=== PATIENT | female | born 1975 | race African-American/Black ===

== ENCOUNTER 2023-05-30 23:16 | Emergency (ER) | payer SELFPAY ==
[~2023-05-30] VITALS: Ht 172.7 cm; Wt 75.0 kg
[2023-05-30 23:20] VITALS: BP 160/93; PULSE 65; RESP 20; O2SAT 100
[2023-05-31 01:39] VITALS: TEMP 98.7
== END 2023-05-31 01:41 | disposition home or self-care (01) ==
LOC: ER 23:16
DX: T78.40XA Allergy, unspecified, initial encounter (principal); F12.10 Cannabis abuse, uncomplicated; X58.XXXA Exposure to other specified factors, initial encounter
CPT/HCPCS: 99283